=== PATIENT | female | born 1945 | race Caucasian/White ===

== ENCOUNTER → 2017-12-02 | Outpatient (CLI) | payer MEDICARE ==
[~2017-12-02] MED LIST: ALPR0.5T8 PO; CLON-465 PO; ENAL20TA PO; ESCI10TA54 PO; IBUP-2070 PO; LETR2.5T6 PO; LEVO112T7 PO; LEVO500T2 PO; NIFE10 PO; OMEP40CA37 PO; PRAV10TA39 PO
== END | disposition home or self-care (01) ==
LOC: RAH 08:25
PROVIDERS: ATTEND Family Medicine
DX: K44.9 Diaphragmatic hernia without obstruction or gangrene (principal); K21.9 Gastro-esophageal reflux disease without esophagitis
CPT/HCPCS: 74240

== ENCOUNTER → 2018-09-23 | Outpatient (CLI) | payer MEDICARE | END | disposition home or self-care (01) | LOC: RAH 14:12 | PROVIDERS: ATTEND Family Medicine | DX: R05 Cough (principal) | CPT/HCPCS: 71046 ==

== ENCOUNTER → 2018-12-01 | Outpatient (CLI) | payer MEDICARE ==
[~2018-12-01] MED LIST changes: +OMEP40CA13 PO; -OMEP40CA37 PO
== END | disposition home or self-care (01) ==
LOC: RAH 10:52
PROVIDERS: ATTEND Family Medicine
DX: R06.02 Shortness of breath (principal); R05 Cough
CPT/HCPCS: 71046

== ENCOUNTER 2019-02-06 05:52 | Day surgery (SDC) | payer MEDICARE ==
[2019-02-03 14:02] VITALS: BP 136/58
[2019-02-03 14:10] LABS: BASOPHILS % (AUTO) 1.1 % (0.0-5.0); EOSINOPHILS % (AUTO) 2.5 % (0.0-8.0); HEMATOCRIT 38.1 % (36-48); LYMPHOCYTES % (AUTO) 27.2 % (21.0-51.0); MEAN CORPUSCULAR HEMOGLOBIN 27.4 pg (27.0-33.0); MEAN CORPUSCULAR HGB CONC 33.9 g/dL (32.0-36.0); MEAN CORPUSCULAR VOLUME 80.8 fL (79-99); MONOCYTES % (AUTO) 9.8 % (3.0-13.0); NEUTROPHILS % (AUTO) 59.4 % (40.0-77.0); NUCLEATED RED BLOOD CELLS 0.1 % (0.0-0.19); PLATELET COUNT (AUTO) 311 K/uL (130-400); RED BLOOD CELL COUNT(AUTO) 4.72 MIL/uL (4.00-5.50); RED CELL DISTRIBUTION WIDTH 15.3 % (11.0-15.5); WHITE BLOOD COUNT (AUTO) 8.4 K/uL (4.8-10.8)
[2019-02-03 14:17] LABS: APPEARANCE,URINE Clear (CLEAR); BILIRUBIN,URINE Negative (NEGATIVE); COLOR,URINE Yellow (YELLOW); GLUCOSE, URINE (UA) Negative (NEGATIVE); KETONES,URINE Negative (NEGATIVE); LEUKOCYTE ESTERASE ,URINE Negative (NEGATIVE); NITRATE,URINE Negative (NEGATIVE); OCCULT BLOOD,URINE Nonhemolyzed Trace (NEGATIVE); PROTEIN,URINE Negative (NEGATIVE); UROBILINOGEN,URINE 0.2 mg/dL (0.2-1.0)
[2019-02-03 14:24] LABS: CREATININE 1.4 mg/dL (0.5-1.5); POTASSIUM 4.6 mmol/L (3.5-5.1)
[2019-02-03 14:29] LABS: INR 0.92 (0.85-1.15); PARTIAL THROMBOPLASTIN TIME 24.7 SEC (26.3-35.5); PROTHROMBIN TIME 9.7 SEC (9.6-11.6)
[2019-02-03 14:47] LABS: BACTERIA,URINE Rare /HPF (None Seen); WBC,URINE 0-1 /HPF (0-1)
[2019-02-03 14:48] LABS: SQUAMOUS EPITHELIAL CELL,UR 0-2 /HPF (0-2)
--- NOTE | 2019-02-03 15:45 | NUR ---
ABNORMAL LABS CREAT 1.4 REPORTED TO ROCIO REN. NO FURTHER ORDERS GIVEN, MAY PROCEED WITH PLANNED PROCEDURE.
[2019-02-06] VITALS (10 sets, daily range): BP systolic 105–134; BP diastolic 44–62
[~2019-02-06] VITALS: Ht 165.1 cm; Wt 67.7 kg
[~2019-02-06 05:52] MED LIST changes: +BUPR-47 PO; +CHOL100040 PO; -CLON-465 PO; +CLON0.1T PO; +CYAN500T63 PO; -ESCI10TA54 PO; +FERR-82 PO; -IBUP-2070 PO; -LETR2.5T6 PO; -LEVO112T7 PO; +LEVO125T11 PO; -LEVO500T2 PO; +MAGN400T25 PO; -NIFE10 PO; +NIFE30TA98 PO; +OMEG-148 PO; +OMEP20TA25 PO; -OMEP40CA13 PO; +PNV11CAP5 PO; -PRAV10TA39 PO; +SODIUM CHLORIDE 0.9% 500ML 500 ML IV SCH; +ZOLP10TA6 PO
[2019-02-06] MEDS ORDERED: SODIUM CHLORIDE 0.9% 1000ML 1,000 ML IV ONE (06:09)
--- NOTE | 2019-02-06 08:50 | NUR ---
PROCEDURE PT TAKEN TO LOOP DRIER OPERATOR FOR SCHEDULE PROCEDURE
[2019-02-06] MEDS ORDERED: IOHEXOL-350 50ML VIAL IV ONE (08:56)
[2019-02-06] MEDS ORDERED: LIDOCAINE HCL 2% 20ML ONE (08:56)
[2019-02-06] MEDS ORDERED: FENTANYL CITRATE PF 50 MCG/1 ML 2ML VIAL ONE (08:56)
[2019-02-06] MEDS ORDERED: NITROGLYCERIN 5 MG/ML 10 ML VIAL IV ONE (08:56)
[2019-02-06] MEDS ORDERED: MIDAZOLAM HCL 1 MG/ML 2ML VIAL ONE ×2 (08:56→09:38)
[2019-02-06] MEDS ORDERED: IOHEXOL 350 MG/ML 100ML INFUS..BTL IV ONE (08:56)
[2019-02-06] MEDS ORDERED: BIVALIRUDIN 250 MG/VIAL IV ONE (09:22)
[2019-02-06] MEDS ORDERED: SODIUM CHLORIDE 0.9% 1000ML 1,000 ML IV SCH (09:57)
[2019-02-06] MEDS ORDERED: DEXTROSE 50%-WATER 50 ML DISP.SYRIN IV PRN (10:00)
[2019-02-06] MEDS ORDERED: GLUCAGON 1MG KIT 1 MG ML IM PRN (10:00)
[2019-02-06] MEDS ORDERED: METOPROLOL TARTRATE 1 MG/ML 5ML VIAL IV PRN (10:00)
--- NOTE | 2019-02-06 10:15 | NUR ---
POST RECEIVED PT BACK FROM LOCKSMITH HELPER, S/P RIGHT /LHC, MYNX CLOSURE DEVICE, DRESSING TO SITE DRY AND INTACT, NO BLEEDING OR HEMATOMA TO RIGHT GROIN, SEE POST CATH ASSESSMENT, VS STABLE. PT INSTRUCTED TO KEEP BEDREST UNTIL FURTHER ORDERS. PLAN OF CARE DISCUSS WITH PATIENT/ SPOUSE. CALL LIGHT WITHIN REACH
--- NOTE | 2019-02-06 10:40 | NUR ---
MD DR. Billy MO IN ROOM- SPOKE TO PATIENT/FAMILY ON RIGHT /LEFT HEART CATH FINDINGS , RECOMENDATIONS.
--- NOTE | 2019-02-06 14:22 | NUR ---
dc pt dc home via wc, no distress noted. pt denied any pain or discomforts. right groin site asymptomatic, right groin with mynx dressing to site dry and intact, no bleeding or hematoma. pt accompanied by sister in law
== END 2019-02-06 14:22 | disposition home or self-care (01) ==
LOC: DAH 05:52
PROVIDERS: ATTEND Internal Medicine Cardiovascular Disease
DX: I34.0 Nonrheumatic mitral (valve) insufficiency (principal); I34.2 Nonrheumatic mitral (valve) stenosis; I25.10 Atherosclerotic heart disease of native coronary artery without angina pectoris; I10 Essential (primary) hypertension; E78.5 Hyperlipidemia, unspecified; E03.9 Hypothyroidism, unspecified; F41.9 Anxiety disorder, unspecified; Z85.3 Personal history of malignant neoplasm of breast; Z98.890 Other specified postprocedural states; Z79.899 Other long term (current) drug therapy; Z87.891 Personal history of nicotine dependence; Z82.49 Family history of ischemic heart disease and other diseases of the circulatory system
CPT/HCPCS: 36415; 71045; 80048; 81001; 85025; 85610; 85730; 93005; 93460; A4215; A4216; A4221; A4222; A4223 ×3; A4606; A4663; C1760; C1769; C1894 ×3; J1644; J2250 ×2; J3010; J3490 ×2; J7030; Q9965; Q9967 ×2; 99156; 99157; J0583

== ENCOUNTER 2019-03-20 05:57 | Observation (INO) | payer MEDICARE ==
[2019-03-16 11:08] VITALS: BP 106/42
[2019-03-16 11:15] LABS: HEMATOCRIT 36.1 % (36-48); LYMPHOCYTES % (AUTO) 26.7 % (21.0-51.0); MEAN CORPUSCULAR HEMOGLOBIN 26.7 pg (27.0-33.0); MEAN CORPUSCULAR HGB CONC 32.1 g/dL (32.0-36.0); MONOCYTES % (AUTO) 7.9 % (3.0-13.0); NEUTROPHILS % (AUTO) 60.7 % (40.0-77.0); PLATELET COUNT (AUTO) 339 K/uL (130-400); RED BLOOD CELL COUNT(AUTO) 4.35 MIL/uL (4.00-5.50); RED CELL DISTRIBUTION WIDTH 13.8 % (11.0-15.5); WHITE BLOOD COUNT (AUTO) 10.3 K/uL (4.8-10.8)
[2019-03-16 11:17] LABS: APPEARANCE,URINE Clear (CLEAR); BILIRUBIN,URINE Negative (NEGATIVE); COLOR,URINE Yellow (YELLOW); GLUCOSE, URINE (UA) Negative (NEGATIVE); KETONES,URINE Negative (NEGATIVE); LEUKOCYTE ESTERASE ,URINE Trace (NEGATIVE); NITRATE,URINE Negative (NEGATIVE); OCCULT BLOOD,URINE Trace (NEGATIVE); PROTEIN,URINE Negative (NEGATIVE); UROBILINOGEN,URINE 0.2 mg/dL (0.2-1.0)
[2019-03-16 11:27] LABS: CREATININE 1.8 mg/dL (0.5-1.5); POTASSIUM 4.7 mmol/L (3.5-5.1)
[2019-03-16 12:14] LABS: BACTERIA,URINE None Seen /HPF (None Seen); RBC,URINE 0-1 /HPF (0-1); SQUAMOUS EPITHELIAL CELL,UR 0-2 /HPF (0-2); WBC,URINE 0-1 /HPF (0-1)
[2019-03-16 12:34] LABS: INR 0.92 (0.85-1.15); PARTIAL THROMBOPLASTIN TIME 24.9 SEC (26.3-35.5); PROTHROMBIN TIME 9.7 SEC (9.6-11.6)
--- NOTE | 2019-03-17 11:56 | NUR ---
CALLED JADON YOUNG AND ADVISED OF BUN 44, DRILL RIG OPERATOR HELPER 1.8 AND NA OF 133, NEW ORDERS FOR BMP DAY OF PROCEDURE AND HE WOULD CALL BACK IF ANY ORDERS FOR FLUID WILL BE NEEDED.
[2019-03-20] VITALS (25 sets, daily range): BP systolic 95–131; BP diastolic 34–76
[~2019-03-20] VITALS: Ht 165.1 cm; Wt 69.4 kg
[~2019-03-20 05:57] MED LIST changes: +ACET1TAB15 PO; +ALBUTEROL IH; -CHOL100040 PO; -CLON0.1T PO; +CLOP75TA14 PO; -CYAN500T63 PO; +CYCLOBENZAPINE PO; +DIPH1TAB PO; +DULO60CA44 PO; -FERR-82 PO; +FURO20TA4 PO; +GLUC-236 PO; +ISOS30TA6 PO; -MAGN400T25 PO; -OMEP20TA25 PO; -PNV11CAP5 PO; +ZOLP10TA2 PO; -ZOLP10TA6 PO
--- NOTE | 2019-03-20 06:15 | NUR ---
PATIENT ARRIVED TO DAY PATIENT ACCOMPANIED BY SPOUSE AND FRIEND. PATIENT AAOX3, RESPIRATIONS UNLABORED, VITAL SIGNS STABLE, DENIES ANY PAIN AT THIS TIME. PROCEDURE VERIFIED WITH PATIENT, ALL QUESTIONS DISCUSSED. HOSPITAL ROUTINE EXPLAINED, PATIENT AND SPOUSE VERBALIZED UNDERSTANDING.
[2019-03-20 06:35] LABS: CREATININE 1.7 mg/dL (0.5-1.5); POTASSIUM 4.4 mmol/L (3.5-5.1)
[2019-03-20] MEDS ORDERED: SODIUM CHLORIDE 0.9% 1000ML 1,000 ML IV ONE (06:59)
[2019-03-20] MEDS ORDERED: BIVALIRUDIN 250 MG/VIAL IV ONE (07:14)
[2019-03-20] MEDS ORDERED: NITROGLYCERIN 1 MG/VIAL VIAL IV ONE (07:15)
[2019-03-20] MEDS ORDERED: MIDAZOLAM HCL 1 MG/ML 2ML VIAL ONE (07:15)
[2019-03-20] MEDS ORDERED: LIDOCAINE HCL 2% 20ML ONE (07:15)
[2019-03-20] MEDS ORDERED: IOHEXOL 350 MG/ML 100ML INFUS..BTL IV ONE (07:16)
[2019-03-20] MEDS ORDERED: IOHEXOL-350 50ML VIAL IV ONE (07:16)
--- NOTE | 2019-03-20 07:20 | NUR ---
PATIENT TRANSFERRED TO DELIVERY MANAGER VIA BED BY ZHANNA JUARES. SPOUSE INSTRUCTED TO STAY IN ROOM IN ORDER TO SPEAK WITH DR MO AFTER PROCEDURE IS COMPLETE.
[2019-03-20] MEDS ORDERED: FENTANYL CITRATE PF 50 MCG/1 ML 2ML VIAL ONE (07:28)
[2019-03-20] MEDS ORDERED: GLUCAGON 1MG KIT 1 MG ML IM PRN (09:00)
[2019-03-20] MEDS ORDERED: HYDRALAZINE HCL 20 MG/ML VIAL IV PRN (09:00)
[2019-03-20] MEDS: ASPIRIN 81MG TAB.CHEW PO SCH (09:00)
[2019-03-20] MEDS ORDERED: DEXTROSE 50%-WATER 50 ML DISP.SYRIN IV PRN (09:00)
[2019-03-20] MEDS ORDERED: NITROGLYCERIN 0.4 MG SL TAB SL PRN (09:00)
[2019-03-20] MEDS: CLOPIDOGREL BISULFATE 75 MG TAB PO SCH (09:00)
[2019-03-20] MEDS: SODIUM CHLORIDE 0.9% 1000ML 600 ML IV SCH ×2 (09:45→14:32)
[2019-03-20 10:40] LABS: CHOLESTEROL 219 mg/dL (<200); LDL DIRECT 126 mg/dL (0-99); TRIGLYCERIDES 320 mg/dL (30-200)
[2019-03-20] MEDS ORDERED: ATROPINE SULFATE 0.1 MG/ML 10 ML SYG IVP ONE (10:46)
[2019-03-20 10:59] LABS: HDL CHOLESTEROL 39 mg/dL (35-85)
--- NOTE | 2019-03-20 14:00 | NUR ---
REPORT/HAND OFF COMMUNICATION REPORT CALLED TO ZHANNA RAI USING SBAR. ALL QUESTIONS/CONCERNS ADDRESSED.
--- NOTE | 2019-03-20 14:15 | NUR ---
PATIENT TRANSFERRED TO ROOM 202 VIA BED. NURSECECELIA AT BEDSIDE. DRESSING TO RIGHT GROIN DRY/INTACT. AREA SOFT/NONTENDER. NO HEMATOMA, NO DRAINAGE PRESENT.
--- NOTE | 2019-03-20 14:15 | NUR ---
RECEIVED TRANSFER TO ROOM 202 VIA BED ACCOMPANIED BY TUAN. RN. PT. AAOX3, RESP.'S EVEN AND UNLABORED. PLEASANT, TALKATIVE. DENIES ANY SOB, DENIES ANY PAIN. CALL LIGHT WITHIN REACH, VERBALIZED ABILITY TO USE.
[2019-03-21 04:08] VITALS: BP 129/51
[2019-03-21 04:19] LABS: HEMATOCRIT 34.4 % (36-48); MEAN CORPUSCULAR HEMOGLOBIN 26.9 pg (27.0-33.0); MEAN CORPUSCULAR HGB CONC 32.3 g/dL (32.0-36.0); MEAN CORPUSCULAR VOLUME 83.5 fL (79-99); PLATELET COUNT (AUTO) 289 K/uL (130-400); RED BLOOD CELL COUNT(AUTO) 4.12 MIL/uL (4.00-5.50); RED CELL DISTRIBUTION WIDTH 13.8 % (11.0-15.5); WHITE BLOOD COUNT (AUTO) 8.5 K/uL (4.8-10.8)
[2019-03-21 04:51] LABS: CREATININE 1.6 mg/dL (0.5-1.5)
--- NOTE | 2019-03-21 07:29 | NUR ---
DR. Addie MO IN ROOM SPEAKING WITH PT. RE:PLAN OF CARE. QUESTIONS ANSWERED BY DR. MO.
[2019-03-21 07:35] VITALS: BP 139/69
[2019-03-21] MEDS: ASPIRIN 81MG TAB.CHEW PO SCH (08:55)
[2019-03-21] MEDS: CLOPIDOGREL BISULFATE 75 MG TAB PO SCH (08:55)
--- NOTE | 2019-03-21 11:10 | NUR ---
HL REMOVED, CATHETER INTACT. DISCHARGE INSTRUCTIONS PROVIDED TO PT. AND FAMILY MEMBERS AT BEDSIDE, VERBALIZED MUTUAL UNDERSTANDING. PT. INFORMED OF RIGHT GROIN RESTRICTIONS/PRECAUTIONS, VERBALIZED UNDERSTANDING.
== END 2019-03-21 11:34 | disposition home or self-care (01) ==
LOC: DAH 05:57 → DAHIP 05:58 → DAH 05:58 → 2AH 14:27
PROVIDERS: ADMIT Internal Medicine Cardiovascular Disease; ATTEND Internal Medicine Cardiovascular Disease
DX: I34.0 Nonrheumatic mitral (valve) insufficiency (principal); I25.119 Atherosclerotic heart disease of native coronary artery with unspecified angina pectoris; I13.0 Hypertensive heart and chronic kidney disease with heart failure and stage 1 through stage 4 chronic kidney disease, or unspecified chronic kidney disease; I50.33 Acute on chronic diastolic (congestive) heart failure; N18.4 Chronic kidney disease, stage 4 (severe); I27.20 Pulmonary hypertension, unspecified; E78.5 Hyperlipidemia, unspecified; K25.9 Gastric ulcer, unspecified as acute or chronic, without hemorrhage or perforation; F41.9 Anxiety disorder, unspecified; Z79.02 Long term (current) use of antithrombotics/antiplatelets; Z79.82 Long term (current) use of aspirin; Z79.899 Other long term (current) drug therapy
CPT/HCPCS: 36415 ×3; 80048 ×3; 80061; 81001; 83880; 85025; 85027; 85610; 85730; 93454; A4215; A4216; A4221; A4222; A4223 ×2; A4606; A4657; A4663; A6402; C1725; C1769; C1874 ×2; C1887; C1894 ×3; C9600; G0378 ×27; J0583; J1644; J2250; J3010; J3490 ×2; J7030 ×2; Q9965 ×2; Q9967; 99156; 99157; J0461

== ENCOUNTER 2019-04-28 12:00 | Inpatient (IN) | payer MEDICARE ==
[~2019-04-28] VITALS: Ht 165.1 cm; Wt 72.8 kg
[~2019-04-28 12:00] MED LIST changes: -DULO60CA44 PO; -SODIUM CHLORIDE 0.9% 500ML 500 ML IV SCH
[2019-04-28 12:34] LABS: BASOPHILS % (AUTO) 0.6 % (0.0-5.0); EOSINOPHILS % (AUTO) 3.9 % (0.0-8.0); HEMATOCRIT 34.9 % (36-48); MEAN CORPUSCULAR HEMOGLOBIN 27.5 pg (27.0-33.0); MEAN CORPUSCULAR HGB CONC 32.4 g/dL (32.0-36.0); MEAN CORPUSCULAR VOLUME 84.9 fL (79-99); MONOCYTES % (AUTO) 8.4 % (3.0-13.0); NEUTROPHILS % (AUTO) 69.6 % (40.0-77.0); PLATELET COUNT (AUTO) 344 K/uL (130-400); RED BLOOD CELL COUNT(AUTO) 4.11 MIL/uL (4.00-5.50); RED CELL DISTRIBUTION WIDTH 13.9 % (11.0-15.5); WHITE BLOOD COUNT (AUTO) 12.7 K/uL (4.8-10.8)
[2019-04-28 12:42] LABS: HEMOGLOBIN A1C 5.3 % (4.0-6.0)
[2019-04-28 12:44] LABS: INR 0.93 (0.85-1.15); PARTIAL THROMBOPLASTIN TIME 25.8 SEC (26.3-35.5); PROTHROMBIN TIME 9.8 SEC (9.6-11.6)
[2019-04-28 12:45] LABS: ALBUMIN 3.8 g/dL (3.5-5.0); BILIRUBIN,TOTAL 0.3 mg/dL (0.2-1.0); CREATININE 2.1 mg/dL (0.5-1.5); POTASSIUM 4.5 mmol/L (3.5-5.1); TOTAL PROTEIN, SERUM 7.9 g/dL (6.0-8.3)
[2019-04-28 13:25] VITALS: BP 102/47
[2019-04-28] MEDS ORDERED: PANT40TA25 PO (13:56)
[2019-04-28] MEDS ORDERED: GABA600T10 PO (13:56)
[2019-04-28] MEDS ORDERED: DULO30CA52 PO (13:56)
[2019-04-28] MEDS ORDERED: ASPI-555 PO (13:56)
--- NOTE | 2019-04-28 17:00 | NUR ---
LABS ABNORMAL WBC, , H&H, SODIUM, CREA, REPORTED TO DR. CRUZ. MESSAGE LEFT WITH SYLWIA TREVIZO RN. PER DR. CRUZ NO FURTHER ORDERS GIVEN, OK TO PROCEED WITH PLANNED SURGERY
[2019-05-01] VITALS (59 sets, daily range): BP systolic 96–188; BP diastolic 31–106
[2019-05-01] MEDS ORDERED: SODIUM CHLORIDE 0.9% 1000ML 1,000 ML IV ONE (09:48)
[2019-05-01] MEDS: CEFUROXIME SODIUM 1.5 GM VIAL ONE ×2 (10:16→11:30)
[2019-05-01] MEDS ORDERED: NOREPINEPHRINE BITARTRATE 8 MG in DEXTROSE 5%-WATER 250 ML IV PRN ×2 (10:30→20:15)
[2019-05-01] MEDS ORDERED: EPINEPHRINE 10 MG in SODIUM CHLORIDE 0.9% 240 ML IV PRN ×2 (10:30→20:15)
[2019-05-01] MEDS ORDERED: AMINOCAPROIC ACID 15,000 MG in SODIUM CHLORIDE 0.9% 500ML 420 ML IV PRN (10:30)
[2019-05-01] MEDS ORDERED: CEFAZOLIN SODIUM 1 GM VIAL ONE (10:35)
[2019-05-01] MEDS ORDERED: OCTYL 2-CYANOACRYLATE 1 EACH TP ONE (10:36)
[2019-05-01] MEDS ORDERED: NOREPINEPHRINE BITARTRATE 1 MG/1 ML ML IV ONE (10:58)
[2019-05-01] MEDS ORDERED: PROTAMINE SULFATE 10 MG/ML 25ML VIAL IV ONE (10:58)
[2019-05-01] MEDS ORDERED: ESMOLOL HCL 10 MG/ML 10 ML VIAL ONE (10:58)
[2019-05-01] MEDS ORDERED: LIDOCAINE PF 2% 5ML ABBOJECT ONE (10:58)
[2019-05-01] MEDS ORDERED: PROPOFOL 10 MG/ML 20ML VIAL IV ONE (10:58)
[2019-05-01] MEDS ORDERED: HEPARIN SODIUM 1000UNIT/ML 10ML VIAL ONE (10:58)
[2019-05-01] MEDS ORDERED: AMINOCAPROIC ACID 250 MG/ML 20 ML VIAL IV ONE ×2 (10:58→14:29)
[2019-05-01] MEDS ORDERED: EPINEPHRINE 1 MG/ML AMPULE ONE (10:58)
[2019-05-01] MEDS ORDERED: ROCURONIUM 10MG/1ML SYR 10 MG/ML ML ONE (10:59)
[2019-05-01] MEDS ORDERED: MIDAZOLAM HCL 1 MG/ML 2ML VIAL ONE (10:59)
[2019-05-01] MEDS ORDERED: KETAMINE 50MG/ML SYRINGE 50 MG/ML DISP.SYRIN IV ONE ×2 (11:00→13:39)
[2019-05-01] MEDS ORDERED: SUFENTANIL CITRATE 50 MCG/ML AMP ONE (11:06)
[2019-05-01] MEDS ORDERED: SODIUM BICARB 50MEQ 50ML VIAL ONE (11:33)
[2019-05-01 11:47] LABS: ABG BASE EXCESS -0.6 mmol/L (-2.0-3.0); ABG HCO3 22.7 mmol/L (21.0-28.0); ABG OXYGEN SATURATION 98.9 % (95.0-99.0); ABG PCO2 33 mmHg (32-45)
[2019-05-01] MEDS ORDERED: ROCURONIUM BROMIDE 10MG/1ML 5ML VL ONE (11:58)
[2019-05-01] MEDS ORDERED: DELNIDO FORMULA 1 BAG IV ONE (12:04)
[2019-05-01] MEDS ORDERED: ALBUTEROL IH PRN (12:15)
[2019-05-01] MEDS ORDERED: ROPIVACAINE 0.5% 5MG/ML 30ML IJ ONE (12:17)
[2019-05-01] MEDS ORDERED: SODIUM CHLORIDE 0.9% 500ML 500 ML IV SCH (12:35)
[2019-05-01 12:43] LABS: ABG BASE EXCESS -4.5 mmol/L (-2.0-3.0); ABG HCO3 19.9 mmol/L (21.0-28.0); ABG OXYGEN SATURATION 98.4 % (95.0-99.0); ABG PCO2 33 mmHg (32-45)
[2019-05-01] MEDS ORDERED: SODIUM CHLORIDE 0.9% 10 ML VIAL IVP PRN (12:45)
[2019-05-01] MEDS ORDERED: PROPOFOL 1000 MG/100 ML 100 ML IV PRN (12:45)
[2019-05-01] MEDS ORDERED: GLUCAGON 1MG KIT 1 MG ML IM PRN (12:45)
[2019-05-01] MEDS ORDERED: MORPHINE SULFATE 2 MG/ML 1ML SYG IV PRN (12:45)
[2019-05-01] MEDS ORDERED: MORPHINE SULFATE 4 MG/1ML SYG IV PRN (12:45)
[2019-05-01] MEDS ORDERED: POTASSIUM PHOS 15 mMOL+NS250ML 250 ML IV PRN (12:45)
[2019-05-01] MEDS ORDERED: ACETAMINOPHEN 650 MG SUPPOSITORY RC PRN (12:45)
[2019-05-01] MEDS ORDERED: DEXTROSE 50%-WATER 50 ML DISP.SYRIN IV PRN (12:45)
[2019-05-01] MEDS ORDERED: ONDANSETRON HCL 4 MG/2 ML VIAL IV PRN (12:45)
[2019-05-01] MEDS ORDERED: NOREPINEPHRINE 4MG/NS 250ML 250 ML IV PRN (12:45)
[2019-05-01] MEDS ORDERED: SODIUM BICARB 50MEQ 50ML VIAL IV PRN (12:45)
[2019-05-01] MEDS ORDERED: NITROGLYCERIN 50 MG/D5% WATER 250 BOT IV SCH (12:45)
[2019-05-01] MEDS ORDERED: SODIUM CHLORIDE 0.9% 1000ML 1,000 ML IV SCH (12:45)
[2019-05-01] MEDS ORDERED: MAGNESIUM 2GM PREMIX 50ML 50 ML IV PRN (12:45)
[2019-05-01] MEDS ORDERED: ALBUMIN (HUMAN) 5% 250 ML IV PRN (12:45)
[2019-05-01] MEDS ORDERED: ACETAMINOPHEN 325 MG TAB PO PRN ×2 (12:45)
[2019-05-01] MEDS ORDERED: SODIUM CHLORIDE 0.9% 250 ML IV PRN (12:45)
[2019-05-01] MEDS ORDERED: AMINOCAPROIC ACID 15,000 MG in SODIUM CHLORIDE 0.9% 250 ML IV SCH (12:45)
[2019-05-01] MEDS ORDERED: EPINEPHRINE 10 MG in DEXTROSE 5%-WATER 250 ML IV PRN (12:45)
[2019-05-01 13:05] LABS: ABG BASE EXCESS -4.2 mmol/L (-2.0-3.0); ABG HCO3 19.7 mmol/L (21.0-28.0); ABG OXYGEN SATURATION 98.4 % (95.0-99.0); ABG PCO2 31 mmHg (32-45)
[2019-05-01] MEDS ORDERED: AMIODARONE HCL 50 MG/ML 3 ML VIAL ONE (13:30)
[2019-05-01] MEDS ORDERED: MILRINONE-D5W 20 MG/100 ML 100 ML IV ONE (13:32)
[2019-05-01 13:40] LABS: ABG BASE EXCESS -6.6 mmol/L (-2.0-3.0); ABG HCO3 17.8 mmol/L (21.0-28.0); ABG OXYGEN SATURATION 98.5 % (95.0-99.0); ABG PCO2 31 mmHg (32-45)
[2019-05-01] MEDS ORDERED: GLYCOPYRROLATE 1 MG/5 ML SYRINGE ONE (13:48)
[2019-05-01 14:07] LABS: ABG BASE EXCESS -9.2 mmol/L (-2.0-3.0); ABG OXYGEN SATURATION 96.1 % (95.0-99.0); ABG PCO2 38 mmHg (32-45)
[2019-05-01] MEDS ORDERED: PROTAMINE SULFATE 10 MG/ML 5 ML VIAL ONE (14:11)
[2019-05-01] MEDS ORDERED: HEPARIN SODIUM 1000UNIT/ML 10ML VIAL IV ONE (14:29)
[2019-05-01] MEDS ORDERED: ALBUMIN (HUMAN) 25% 50 ML IV ONE (14:29)
[2019-05-01] MEDS ORDERED: SODIUM BICARB 8.4% 50ML SYRINGE IVP ONE (14:29)
[2019-05-01] MEDS ORDERED: PHENYLEPHRINE HCL 10 MG/ML 1ML VIAL IV ONE (14:29)
[2019-05-01] MEDS ORDERED: MAGNESIUM SULFATE 1 GM/2 ML VIAL IM ONE (14:29)
[2019-05-01] MEDS ORDERED: MANNITOL 25% 50ML VIAL IV ONE (14:29)
[2019-05-01] MEDS ORDERED: CALCIUM CHLORIDE 100 MG/ML 10 ML SYG IVP ONE (14:29)
--- NOTE | 2019-05-01 14:33 | NUR ---
POST OP Received pt immediately post op. Orally intubated/sedated. Sedation not infusing. Not yet responsive to verbal or tactile stimulation. SR on tele - fair apical heart tones. VS/hemodynamics as recorded. Vent settings as recorded. Skin is warm, dry. Abd soft - absent bowel sounds. No OGT in place. F/C patent - clear yellow urine. Right IJ CVP line in use. Left radial arterial line patent with acceptable waveform, brisk blood return obtained. PIV to RH patent. Surgical drsg to right chest wall with small amount of bloody drainage - marked. No evidence of crepitus/air leak. Single 19fr right lateral CT in place with sanguineous drainage. CT to 20cm suction. Epicardial wires taped securely to chest wall. Ambu pain infusion catheter in place - pain ball connected - infusing at 10ml/hr as ordered. Right groin drsg clean and dry. No evidence of bleeding/oozing or hematoma noted to site. Received pt on IV levophed gtt @10mcg/min, epinephrine gtt @0.07mcg/kg/min, amicar @50ml/hr, milrinone @0.25mcg/kg/min. Assessment completed/recorded.
[2019-05-01 15:13] LABS: ABG BASE EXCESS 0.1 mmol/L (-2.0-3.0); ABG HCO3 25.7 mmol/L (21.0-28.0); ABG OXYGEN SATURATION 91.2 % (95.0-99.0); ABG PCO2 46 mmHg (32-45)
--- NOTE | 2019-05-01 15:16 | NUR ---
PT CARE IV levophed gtt now at 6mcg/min - will observe pt tolerance. No acute changes in pt assessment. Not yet responsive to stimulation.
[2019-05-01] MEDS: INSULIN REGULAR, HUMAN 3ML 100 UNIT in SODIUM CHLORIDE 0.9% 99 ML IV SCH ×2 (15:31)
[2019-05-01] MEDS: Q-PUMP 1 EACH MISC SCH (15:32)
[2019-05-01 15:59] LABS: HEMATOCRIT 27.9 % (36-48); MEAN CORPUSCULAR HEMOGLOBIN 27.4 pg (27.0-33.0); MEAN CORPUSCULAR HGB CONC 33.3 g/dL (32.0-36.0); MEAN CORPUSCULAR VOLUME 82.3 fL (79-99); PLATELET COUNT (AUTO) 293 K/uL (130-400); RED BLOOD CELL COUNT(AUTO) 3.39 MIL/uL (4.00-5.50); RED CELL DISTRIBUTION WIDTH 14.2 % (11.0-15.5)
[2019-05-01] MEDS: POTASSIUM CHLORIDE 20MEQ/100ML 100 ML IV PRN ×2 (15:59→19:21)
[2019-05-01] MEDS ORDERED: ROPIVACAINE 0.2% 2MG/ML 100ML VIAL IJ ONE (16:01)
[2019-05-01 16:05] LABS: ABG BASE EXCESS 0.5 mmol/L (-2.0-3.0); ABG HCO3 25.4 mmol/L (21.0-28.0); ABG OXYGEN SATURATION 91.7 % (95.0-99.0); ABG PCO2 42 mmHg (32-45)
--- NOTE | 2019-05-01 16:10 | NUR ---
FAMILY UPDATE Pt's family in to see pt - updated. Questions addressed. Discussed routine post op plan of care. [facility] phone number provided to pt's spouse. Made aware of [facility] visitation policy. Pt beginning to show signs of waking. Attempts made to reassure. No eye opening observed. IV levophed gtt now at 2mcg/min. Will observe pt tolerance. Refer to VS flow sheet.
[2019-05-01 16:13] LABS: CREATININE 1.7 mg/dL (0.5-1.5); INR 1.07 (0.85-1.15); PARTIAL THROMBOPLASTIN TIME 23.3 SEC (26.3-35.5); PHOSPHORUS 4.7 mg/dL (2.5-4.9); POTASSIUM 3.9 mmol/L (3.5-5.1); PROTHROMBIN TIME 11.2 SEC (9.6-11.6)
[2019-05-01 16:43] LABS: BAND NEUTROPHILS % (MANUAL) 2 % (0-2); EOSINOPHILS % (MANUAL) 1 % (1-6); LYMPHOCYTES % (MANUAL) 9 % (22-44); MAN.DIFF COMMENT-IMPRESSION MANUAL DIFFERENTIAL; MONOCYTES % (MANUAL) 5 % (2-9); SEGMENTED NEUTROPHILS % 83 % (40-70)
[2019-05-01 16:45] LABS: PLATELET MORPHOLOGY COMMENT ADEQUATE
--- NOTE | 2019-05-01 17:02 | NUR ---
STATUS No eye opening observed but pt now beginning to attempt to lift upper extremities - shoulder "shrug" noted. Pt attempting to move head side to side. Attempts made to reassure pt. Will continue to observe. IV levophed gtt now @0.5mcg/min - remaining gtts unchanged.
[2019-05-01] MEDS: CEFAZOLIN SODIUM 1 GM VIAL IV SCH (17:58)
--- NOTE | 2019-05-01 18:00 | NUR ---
STATUS Pt attempting to open eyes to commands - not yet successful. Attempts made to reassure. IV levophed now off. Will observe pt tolerance.
--- NOTE | 2019-05-01 18:30 | NUR ---
SHIFT REPORT Care of pt endorsed to 7P RN. Pt continues to show signs of waking but is not yet arousable fully to verbal stimulation. Is in no acute distress.
--- NOTE | 2019-05-01 19:00 | NUR ---
Received Pt intubated with milrinone, levo, insulin and epi drip running via right IJ cordis. Pt lethargic but arousable to voice, able to squeeze hands bilaterally. Alvarado secured and draining clear yellow urine, left radial art line, right lateral chest tube to wall suction draining sanguineous fluid. On Ropivacaine continous drip to right chest site running 10cc/hr. Will continue to monitor and manage medications.
[2019-05-01 19:12] LABS: ABG BASE EXCESS -2.5 mmol/L (-2.0-3.0); ABG HCO3 21.5 mmol/L (21.0-28.0); ABG OXYGEN SATURATION 95.5 % (95.0-99.0); ABG PCO2 34 mmHg (32-45)
[2019-05-01] MEDS ORDERED: NOREPINEPHRINE 4MG/NS 250ML 250 ML IV SCH (20:00)
[2019-05-01] MEDS ORDERED: EPINEPHRINE 2 MG in SODIUM CHLORIDE 0.9% 250 ML IV SCH (20:00)
[2019-05-01] MEDS: PHARMACY COMMUNICATION MISC SCH (20:30)
[2019-05-01 20:34] LABS: ABG BASE EXCESS 1.3 mmol/L (-2.0-3.0); ABG HCO3 24.7 mmol/L (21.0-28.0); ABG OXYGEN SATURATION 93.1 % (95.0-99.0); ABG PCO2 35 mmHg (32-45)
[2019-05-01] MEDS: ATORVASTATIN CALCIUM 20 MG TABLET PO SCH (21:00)
[2019-05-01 21:17] LABS: ABG BASE EXCESS 0.5 mmol/L (-2.0-3.0); ABG HCO3 23.6 mmol/L (21.0-28.0); ABG OXYGEN SATURATION 93.6 % (95.0-99.0); ABG PCO2 34 mmHg (32-45)
--- NOTE | 2019-05-01 21:20 | NUR ---
Pt extubated at 2119 with no complications, able to follow commands. ABG within normal limits, alert and coherent.
[2019-05-01] MEDS: TRAMADOL HCL 50 MG TABLET PO PRN (22:29)
[2019-05-01 22:55] LABS: ABG BASE EXCESS 4.6 mmol/L (-2.0-3.0); ABG HCO3 28.8 mmol/L (21.0-28.0); ABG PCO2 41 mmHg (32-45)
[2019-05-02] VITALS (91 sets, daily range): BP systolic 102–255; BP diastolic 33–87
[2019-05-02] MEDS: CEFAZOLIN SODIUM 1 GM VIAL IV SCH ×2 (02:11→09:16)
[2019-05-02 04:08] LABS: HEMATOCRIT 22.4 % (36-48); MEAN CORPUSCULAR HEMOGLOBIN 26.8 pg (27.0-33.0); MEAN CORPUSCULAR VOLUME 81.2 fL (79-99); PLATELET COUNT (AUTO) 208 K/uL (130-400); RED BLOOD CELL COUNT(AUTO) 2.76 MIL/uL (4.00-5.50); WHITE BLOOD COUNT (AUTO) 21.1 K/uL (4.8-10.8)
[2019-05-02 04:13] LABS: ABG BASE EXCESS 5.3 mmol/L (-2.0-3.0); ABG HCO3 29.8 mmol/L (21.0-28.0); ABG PCO2 43 mmHg (32-45)
[2019-05-02] MEDS: PHARMACY COMMUNICATION MISC SCH ×3 (04:30→20:30)
[2019-05-02] MEDS: TRAMADOL HCL 50 MG TABLET PO PRN ×2 (04:30→10:34)
[2019-05-02 04:36] LABS: MAGNESIUM 2.1 mg/dL (1.80-2.40); PHOSPHORUS 3.9 mg/dL (2.5-4.9); POTASSIUM 4.4 mmol/L (3.5-5.1)
[2019-05-02 04:53] LABS: INR 1.01 (0.85-1.15); PARTIAL THROMBOPLASTIN TIME 23.6 SEC (26.3-35.5); PROTHROMBIN TIME 10.6 SEC (9.6-11.6)
[2019-05-02] MEDS: CALCIUM GLUCONATE 1 GM in SODIUM CHLORIDE 0.9% 50 ML IV PRN ×2 (07:16→10:42)
--- NOTE | 2019-05-02 08:40 | NUR ---
DR CRUZ UPDATED VIA PHONE REGARDING AM LABS, NEW ORDERS GIVEN TO TRANSFUSE 1 UNIT OF PRBC'S
[2019-05-02] MEDS: INSULIN REGULAR, HUMAN 3ML 100 UNIT in SODIUM CHLORIDE 0.9% 99 ML IV SCH ×2 (09:05)
[2019-05-02] MEDS: LEVOTHYROXINE 125 MCG TABLET PO SCH (09:06)
[2019-05-02] MEDS: ASPIRIN 81 MG EC TAB PO SCH (09:06)
[2019-05-02] MEDS: FUROSEMIDE 10 MG/ML 2ML VIAL IV SCH ×2 (09:06→22:10)
[2019-05-02] MEDS: FAMOTIDINE/PF 20 MG/2 ML VIAL IV SCH (09:06)
[2019-05-02] MEDS: DULOXETINE HCL 30 MG CAP PO SCH (09:06)
[2019-05-02] MEDS: Q-PUMP 1 EACH MISC SCH (13:00)
--- NOTE | 2019-05-02 13:37 | NUR ---
INITIAL Patient lives with spouse, Rodriguez Venegas, . She has no home services or DME. Patient is able to complete ADL's independently and drove before surgery. PCP is Dr. Giorgio Linder. Pharmacy is [facility] in [place]. DCP is home. Addendum: 05/02/19 at 1339 by DAVIDE DISLA SS Amended: Links added.
--- NOTE | 2019-05-02 17:40 | NUR ---
DR CRUZ AT BEDSIDE, NO NEW ORDERS GIVEN
[2019-05-02] MEDS: BUPROPION HCL 150 MG PO SCH (21:00)
[2019-05-02] MEDS: ATORVASTATIN CALCIUM 20 MG TABLET PO SCH (22:10)
[2019-05-03] VITALS (24 sets, daily range): BP systolic 106–170; BP diastolic 32–65
[2019-05-03] MEDS: TRAMADOL HCL 50 MG TABLET PO PRN (03:37)
[2019-05-03 04:15] LABS: HEMATOCRIT 24.5 % (36-48); MEAN CORPUSCULAR HGB CONC 33.1 g/dL (32.0-36.0); MEAN CORPUSCULAR VOLUME 81.7 fL (79-99); PLATELET COUNT (AUTO) 166 K/uL (130-400); RED CELL DISTRIBUTION WIDTH 14.5 % (11.0-15.5); WHITE BLOOD COUNT (AUTO) 23.1 K/uL (4.8-10.8)
[2019-05-03 04:23] LABS: POTASSIUM 3.5 mmol/L (3.5-5.1)
[2019-05-03] MEDS: PHARMACY COMMUNICATION MISC SCH ×3 (04:30→20:30)
[2019-05-03] MEDS: POTASSIUM CHLORIDE 20MEQ/100ML 100 ML IV PRN (04:41)
[2019-05-03] MEDS ORDERED: METOPROLOL TARTRATE 25 MG TAB PO SCH (09:00)
[2019-05-03] MEDS: LEVOTHYROXINE 125 MCG TABLET PO SCH (10:57)
[2019-05-03] MEDS: FAMOTIDINE/PF 20 MG/2 ML VIAL IV SCH (10:57)
[2019-05-03] MEDS: FUROSEMIDE 20 MG TABLET PO SCH ×2 (10:58→16:45)
[2019-05-03] MEDS: ASPIRIN 81 MG EC TAB PO SCH (10:58)
[2019-05-03] MEDS: DULOXETINE HCL 30 MG CAP PO SCH (10:59)
[2019-05-03] MEDS: Q-PUMP 1 EACH MISC SCH (13:00)
[2019-05-03] MEDS: METOPROLOL TARTRATE 25 MG TAB PO SCH (20:43)
[2019-05-03] MEDS: ATORVASTATIN CALCIUM 20 MG TABLET PO SCH (20:43)
[2019-05-03] MEDS: BUPROPION HCL 150 MG PO SCH (20:45)
[2019-05-04] VITALS (7 sets, daily range): BP systolic 106–140; BP diastolic 47–76
--- NOTE | 2019-05-04 00:08 | NUR ---
PATIENT TRANSFERRED TO ROOM 201,REPORT GIVEN TO ZHANNA FELTON.
[2019-05-04 04:21] LABS: HEMATOCRIT 21.8 % (36-48); MEAN CORPUSCULAR HEMOGLOBIN 27.6 pg (27.0-33.0); MEAN CORPUSCULAR HGB CONC 32.6 g/dL (32.0-36.0); MEAN CORPUSCULAR VOLUME 84.8 fL (79-99); PLATELET COUNT (AUTO) 158 K/uL (130-400); RED BLOOD CELL COUNT(AUTO) 2.57 MIL/uL (4.00-5.50); RED CELL DISTRIBUTION WIDTH 14.5 % (11.0-15.5); WHITE BLOOD COUNT (AUTO) 21.5 K/uL (4.8-10.8)
[2019-05-04 04:27] LABS: CREATININE 1.3 mg/dL (0.5-1.5); POTASSIUM 3.3 mmol/L (3.5-5.1)
[2019-05-04] MEDS: PHARMACY COMMUNICATION MISC SCH (04:30)
[2019-05-04] MEDS: ASPIRIN 81 MG EC TAB PO SCH (09:00)
[2019-05-04] MEDS: METOPROLOL TARTRATE 25 MG TAB PO SCH ×2 (12:14→23:20)
[2019-05-04] MEDS: FUROSEMIDE 20 MG TABLET PO SCH ×3 (12:14→18:39)
[2019-05-04] MEDS: DULOXETINE HCL 30 MG CAP PO SCH (12:14)
[2019-05-04] MEDS: LEVOTHYROXINE 125 MCG TABLET PO SCH (12:15)
[2019-05-04] MEDS: CLOPIDOGREL BISULFATE 75 MG TAB PO SCH (12:15)
[2019-05-04] MEDS: ENOXAPARIN SODIUM 30 MG/0.3 ML SQ SCH (12:16)
--- NOTE | 2019-05-04 15:32 | NUR ---
DC PLAN VISITED WITH PATIENT. ORDER FOR HOME HEALTH. SAID THEY DISCUSSED IT AND NOW WANT SNF. 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 NO ONE TO HELP PATIENT AT HOME WHILE SPOUSE AT WORK. GAVE SNF INFO INCLUDING CMS GUIDELINES. SAID SHE IS TALKING TO SPOUSE TO SEE WHICH PLACE TO GO WITH. TOLD NURSE AND SENDING MESSAGE TO DR. CRUZ NURSE THAT PATIENT CHANGED PLAN FROM HOME HEALTH TO SNF. PENDING ORDER FROM PRIMARY. Addendum: 05/04/19 at 1538 by RADHA TAVAREZ RN Amended: Links added.
--- NOTE | 2019-05-04 17:55 | NUR ---
DC PLAN VISITED WITH PATIENT. [facility] FOR [facility] CHOICE AND [facility] CHOICE. GOT ORDER FOR SNF FROM PRIMARY. INFO FAXED INCLUDING [facility]. LET REP KNOW.
[2019-05-04] MEDS ORDERED: LIDOCAINE HCL-MPF 1% 2ML VIAL IV PRN (18:45)
[2019-05-04] MEDS ORDERED: POTASSIUM CHLORIDE 20MEQ/100ML 100 ML IV PRN (18:45)
[2019-05-04] MEDS ORDERED: POTASSIUM CHLORIDE 10% ELIXIR 20 MEQ/15 ML UDCUP PO PRN (18:45)
[2019-05-04] MEDS: POTASSIUM CHLORIDE 20 MEQ ERTAB PO PRN ×2 (19:35→22:34)
[2019-05-04] MEDS: ATORVASTATIN CALCIUM 20 MG TABLET PO SCH (20:41)
[2019-05-04] MEDS: BUPROPION HCL 150 MG PO SCH (21:00)
[2019-05-05 03:39] VITALS: BP 153/60
[2019-05-05 03:54] LABS: HEMATOCRIT 25.4 % (36-48); MEAN CORPUSCULAR HEMOGLOBIN 27.9 pg (27.0-33.0); MEAN CORPUSCULAR HGB CONC 33.5 g/dL (32.0-36.0); MEAN CORPUSCULAR VOLUME 83.3 fL (79-99); PLATELET COUNT (AUTO) 185 K/uL (130-400); RED BLOOD CELL COUNT(AUTO) 3.05 MIL/uL (4.00-5.50); RED CELL DISTRIBUTION WIDTH 13.6 % (11.0-15.5)
[2019-05-05 04:02] LABS: CREATININE 1.2 mg/dL (0.5-1.5); POTASSIUM 3.4 mmol/L (3.5-5.1)
[2019-05-05] MEDS: LEVOTHYROXINE 125 MCG TABLET PO SCH (05:34)
[2019-05-05 07:00] VITALS: BP 156/59
[2019-05-05] MEDS ORDERED: METOPROLOL TARTRATE 25 MG TAB PO SCH (09:00)
--- NOTE | 2019-05-05 10:30 | NUR ---
AM ASSESSMENT PT SITTING IN CARDIAC RECLINER, RESTING. A/O X 3. NO SOB. NO DISTRESS NOTED. DENIES CHEST PAIN OR DISCOMFORT. DENIES PALPITATIONS. TELE: SR. DENIES INCISIONAL PAIN. RT CHEST INCISION DSG DRY & INTACT. NO BLEEDING, NO DRAINAGE NOTED. DENIES N/V. PER PT 1 EPISODE OF DIARRHEA SINCE THIS AM. MD TO BE NOTIFIED. DIARRHEA BEGAN THIS MORNING. STERNAL PRECAUTIONS REINFORCED. RT GROIN INCISION WELL APPROX. NO DRAINAGE NOTED. UP W/ASSISTANCE. INSTRUCTED TO CALL FOR ASSISTANCE. CALL BRIAN W/IN REACH.
[2019-05-05] MEDS: ASPIRIN 81 MG EC TAB PO SCH (10:37)
[2019-05-05] MEDS: FUROSEMIDE 20 MG TABLET PO SCH ×2 (10:38→16:29)
[2019-05-05] MEDS: CLOPIDOGREL BISULFATE 75 MG TAB PO SCH (10:39)
[2019-05-05] MEDS: DULOXETINE HCL 30 MG CAP PO SCH (10:40)
[2019-05-05] MEDS: FAMOTIDINE 20MG TAB 20 MG TAB PO SCH (10:40)
[2019-05-05] MEDS: ENOXAPARIN SODIUM 30 MG/0.3 ML SQ SCH (10:41)
[2019-05-05] MEDS: LISINOPRIL 2.5 MG TABLET PO SCH ×2 (10:47→20:30)
[2019-05-05 11:00] VITALS: BP 128/60
--- NOTE | 2019-05-05 11:15 | NUR ---
STATUS/MD VISIT NOTIFIED BY COUNTY HEALTH OFFICER PT CURRENTLY AFIB 130-140s SUSTAINING X [address] BERKOWITZ ROUNDABDIRIZAK @ THIS TIME. UPDATED ON PT'S STATUS. ORDERS RECEIVED & ENTERED.
[2019-05-05] MEDS ORDERED: METOPROLOL TARTRATE 1 MG/ML 5ML VIAL IV SCH ×2 (11:30→12:30)
--- NOTE | 2019-05-05 12:31 | NUR ---
MD NOTIFICATION Sagar CHAN NOTIFIED & UPDATED ON PT'S STATUS. HR AFIB 130-140s AFTER 1 TIME DOSE OF LOPRESSOR 5MG IV. ORDERS RECEIVED FOR LOPRESSOR 5 MG IVP X 2 DOSES Q 5 MIN.
[2019-05-05] MEDS: METOPROLOL TARTRATE 1 MG/ML 5ML VIAL IV SCH ×2 (13:06→13:13)
--- NOTE | 2019-05-05 14:12 | NUR ---
MD NOTIFICATION aSgar CHAN UPDATED ON PT'S STATUS. PT CONTINUES TO BE IN AFIB 130s. ORDERS FOR CARDIZEM IVP & GTT RECEIVED & ENTERED.
[2019-05-05] MEDS ORDERED: DILTIAZEM HCL 5 MG/ML 10 ML VIAL IV SCH (14:30)
[2019-05-05] MEDS ORDERED: DILTIAZEM HCL 125 MG/25 ML 125 MG in SODIUM CHLORIDE 0.9% 100 ML IV SCH (14:30)
[2019-05-05 15:00] VITALS: BP 112/54
--- NOTE | 2019-05-05 15:00 | NUR ---
STATUS/MD NOTIFICATION NOTIFIED BY FRAME CLEANER PT CONVERTED TO SR 70s. EKG DONE @ THIS TIME. C HECTOR CHAN NOTIFIED. CARDIZEM IVP & GTT NOT YET GIVEN. ORDER FOR CARDIZEM IVP & GTT DC'D. CONTINUE METOPROLOL PO ORDERED.
[2019-05-05] MEDS ORDERED: PHARMACY COMMUNICATION MISC SCH (15:45)
[2019-05-05] MEDS: DIPHENOXYLATE HCL/ATROPINE 2.5/0.025 MG TAB PO PRN (16:29)
[2019-05-05 20:22] VITALS: BP 123/48
[2019-05-05] MEDS: ATORVASTATIN CALCIUM 20 MG TABLET PO SCH (20:30)
[2019-05-05] MEDS: METOPROLOL TARTRATE 50 MG TAB PO SCH (20:30)
[2019-05-05] MEDS: BUPROPION HCL 150 MG PO SCH (20:31)
[2019-05-05 23:30] VITALS: BP 137/59
[2019-05-06 03:40] VITALS: BP 168/65
[2019-05-06] MEDS ORDERED: DILTIAZEM HCL 125 MG/25 ML 125 MG in SODIUM CHLORIDE 0.9% 100 ML IV SCH (05:30)
[2019-05-06] MEDS: LEVOTHYROXINE 125 MCG TABLET PO SCH (06:03)
[2019-05-06 07:00] VITALS: BP 161/80
[2019-05-06] MEDS ORDERED: DIGOXIN 250 MCG/ML 2ML AMP IV SCH (07:15)
[2019-05-06 07:31] LABS: CREATININE 1.1 mg/dL (0.5-1.5); POTASSIUM 4.1 mmol/L (3.5-5.1)
--- NOTE | 2019-05-06 07:45 | NUR ---
AM ASSESSMENT PT LAYING IN CARDIAC RECLINER, WATCHING TV. A/O X 3. NO SOB. NO DISTRESS NOTED. PT PLACED ON 02 NC @ 2L. DENIES CHEST PAIN OR DISCOMFORT. STATES FEELING PALPITATIONS. TELE: AFLUTTER 140s. DR MENESES AWARE. CARDIZEM GTT @ 15 MG/HR. DENIES N/V AND/OR DIARRHEA. LAST EPISODE OF DIARRHEA YESTERDAY. C/O INCISIONAL PAIN. PO PAIN MEDICATION TO BE GIVEN. INCISION DSG DRY & INTACT. NO DRAINAGE NOTED. STERNAL PRECAUTIONS REINFORCED. IMPORTANCE OF IS REINFORCED @ THIS TIME TOO. IS 750 ML. UP W/ASSISTANCE. INSTRUCTED TO CALL FOR ASSISTANCE. CALL BRIAN W/IN REACH.
[2019-05-06] MEDS: METOPROLOL TARTRATE 50 MG TAB PO SCH (08:17)
[2019-05-06] MEDS: FUROSEMIDE 20 MG TABLET PO SCH ×2 (08:17→16:52)
[2019-05-06] MEDS: FAMOTIDINE 20MG TAB 20 MG TAB PO SCH (08:17)
[2019-05-06] MEDS: ASPIRIN 81 MG EC TAB PO SCH (08:17)
[2019-05-06] MEDS: CLOPIDOGREL BISULFATE 75 MG TAB PO SCH (08:17)
[2019-05-06] MEDS: DULOXETINE HCL 30 MG CAP PO SCH (08:17)
[2019-05-06] MEDS: LISINOPRIL 2.5 MG TABLET PO SCH ×2 (08:18→20:26)
[2019-05-06] MEDS: TRAMADOL HCL 50 MG TABLET PO PRN ×2 (08:23→18:15)
[2019-05-06] MEDS: ENOXAPARIN SODIUM 30 MG/0.3 ML SQ SCH (08:25)
--- NOTE | 2019-05-06 09:50 | NUR ---
[facility] Update: Received call from Cathy this am regarding ins auth. She mentions that they have obtained insurance auth for admission. Informed her that as per primary nurse pt back in afib and on a drip. Per Cathy ins auth is good until Wednesday. CM to continue to follow.
[2019-05-06 11:00] VITALS: BP 110/46
[2019-05-06] MEDS: DIGOXIN 250 MCG/ML 2ML AMP IV SCH ×2 (11:38→18:04)
[2019-05-06] MEDS: DIPHENOXYLATE HCL/ATROPINE 2.5/0.025 MG TAB PO PRN (11:41)
[2019-05-06 12:27] LABS: ALBUMIN 2.6 g/dL (3.5-5.0); BILIRUBIN,DIRECT 0.4 mg/dL (0.0-0.3); BILIRUBIN,TOTAL 1.1 mg/dL (0.2-1.0); TOTAL PROTEIN, SERUM 6.9 g/dL (6.0-8.3)
[2019-05-06] MEDS: METOPROLOL TARTRATE 25 MG TAB PO SCH ×2 (14:24→20:25)
[2019-05-06 15:00] VITALS: BP 119/59
[2019-05-06 19:52] VITALS: BP 128/55
[2019-05-06] MEDS: BUPROPION HCL 150 MG PO SCH (20:24)
[2019-05-06] MEDS: ATORVASTATIN CALCIUM 20 MG TABLET PO SCH (20:26)
[2019-05-06 23:43] VITALS: BP 133/67
[2019-05-07 03:07] VITALS: BP 128/64
[2019-05-07] MEDS: LEVOTHYROXINE 125 MCG TABLET PO SCH (06:22)
[2019-05-07 07:00] VITALS: BP 153/59
[2019-05-07] MEDS: CLOPIDOGREL BISULFATE 75 MG TAB PO SCH (08:44)
[2019-05-07] MEDS: DULOXETINE HCL 30 MG CAP PO SCH (08:44)
[2019-05-07] MEDS: ASPIRIN 81 MG EC TAB PO SCH (08:45)
[2019-05-07] MEDS: FAMOTIDINE 20MG TAB 20 MG TAB PO SCH (08:45)
[2019-05-07] MEDS: METOPROLOL TARTRATE 25 MG TAB PO SCH (08:45)
[2019-05-07] MEDS: LISINOPRIL 2.5 MG TABLET PO SCH (08:45)
[2019-05-07] MEDS: FUROSEMIDE 20 MG TABLET PO SCH ×2 (08:45→15:23)
[2019-05-07] MEDS: ENOXAPARIN SODIUM 30 MG/0.3 ML SQ SCH (08:46)
[2019-05-07] MEDS ORDERED: DIGOXIN 125 MCG TABLET PO SCH (09:00)
[2019-05-07] MEDS: TRAMADOL HCL 50 MG TABLET PO PRN (10:27)
[2019-05-07 11:00] VITALS: BP 148/69
[2019-05-07] MEDS ORDERED: METOPROLOL TARTRATE 25 MG TAB PO SCH (12:15)
[2019-05-07 15:00] VITALS: BP 145/58
--- NOTE | 2019-05-07 16:08 | NUR ---
ATTEMPTED TO GIVE REPORT TO RECEIVING NURSE AT [facility] BUT PER SCALE OPERATOR MANDIE, NURSES ARE BUSY AT THIS TIME. AWAITING CALLBACK AT EXT [phone].
--- NOTE | 2019-05-07 17:25 | NUR ---
SBAR REPORT HANDED TO YSABEL GREENE OF [facility]. ALL QUESTIONS ANSWERED. REFAXED MAR TO [phone]. AWAITING FACILITY VAN TO MANAGER CONTROL PATIENT.
== END 2019-05-07 20:15 | DRG 219 ==
LOC: EDSTATUS 12:00 → DAHIP 05-01 08:02 → 2CV 05-01 14:19 → 2BH 05-02 05:37 → 2AH 05-03 23:46
PROVIDERS: ADMIT Thoracic Surgery (Cardiothoracic Vascular Surgery); ATTEND Thoracic Surgery (Cardiothoracic Vascular Surgery)
PROC: 5A1221Z Performance of Cardiac Output, Continuous (ICD-10-PCS; 2019-05-01)
PROC: B24BZZ4 Ultrasonography of Heart with Aorta, Transesophageal (ICD-10-PCS; 2019-05-01)
PROC: 30233N1 Transfusion of Nonautologous Red Blood Cells into Peripheral Vein, Percutaneous Approach (ICD-10-PCS; 2019-05-01)
PROC: 02RG08Z Replacement of Mitral Valve with Zooplastic Tissue, Open Approach (ICD-10-PCS; principal; 2019-05-01 10:50)
PROC: 02L70ZK Occlusion of Left Atrial Appendage, Open Approach (ICD-10-PCS; 2019-05-01 10:50)
DX: I05.2 Rheumatic mitral stenosis with insufficiency (principal); I50.33 Acute on chronic diastolic (congestive) heart failure; N17.9 Acute kidney failure, unspecified; D62 Acute posthemorrhagic anemia; J98.11 Atelectasis; I25.10 Atherosclerotic heart disease of native coronary artery without angina pectoris; I95.81 Postprocedural hypotension; D72.829 Elevated white blood cell count, unspecified; E03.9 Hypothyroidism, unspecified; E11.51 Type 2 diabetes mellitus with diabetic peripheral angiopathy without gangrene; E78.00 Pure hypercholesterolemia, unspecified; E78.5 Hyperlipidemia, unspecified; I11.0 Hypertensive heart disease with heart failure; I48.91 Unspecified atrial fibrillation; F41.9 Anxiety disorder, unspecified; I65.23 Occlusion and stenosis of bilateral carotid arteries; K21.9 Gastro-esophageal reflux disease without esophagitis; Z74.01 Bed confinement status; Z79.02 Long term (current) use of antithrombotics/antiplatelets; Z79.82 Long term (current) use of aspirin; Z79.899 Other long term (current) drug therapy; Z82.3 Family history of stroke; Z85.3 Personal history of malignant neoplasm of breast; Z87.891 Personal history of nicotine dependence; Z90.710 Acquired absence of both cervix and uterus; Z95.5 Presence of coronary angioplasty implant and graft
CPT/HCPCS: 36415; 36430; 71045; 71046; 80048; 80053; 80076; 82150; 82330; 82435; 82803; 82947; 82948; 83036; 83605; 83690; 83735; 84100; 84132; 84295; 85018; 85025; 85027; 85060; 85347; 85610; 85730; 86850; 86900; 86901; 86922; 88305; 88311; 93005; 93313; 93318; 93880; 94002; 94010; 94150; 97039; A4344; A4357; A7048; G0378; J0171; J0282; J0610; J0690; J0697; J1160; J1644; J1650; J1815; J1940; J2001; J2150; J2250; J2260; J2370; J2704; J2720; J2795; J3475; J3480; J3490; J7030; J7040; P9016; P9047

== ENCOUNTER → 2019-06-14 | Outpatient (CLI) | payer MEDICARE ==
[~2019-06-14] MED LIST changes: +ASPI-555 PO; +DULO30CA52 PO; +GABA600T10 PO; +PANT40TA25 PO
== END | disposition home or self-care (01) ==
LOC: SHCH 11:11
PROVIDERS: ATTEND Internal Medicine Cardiovascular Disease
DX: I87.2 Venous insufficiency (chronic) (peripheral) (principal)
CPT/HCPCS: 93306

== ENCOUNTER → 2020-08-09 | Outpatient (CLI) | payer MEDICARE ==
[~2020-08-09] MED LIST changes: +AMOX-426 PO; -ASPI-555 PO; +ASPI-556 PO; +ATOR10 PO; -BUPR-47 PO; +BUPR-49 PO; -DULO30CA52 PO; -ENAL20TA PO; -GABA600T10 PO; -ISOS30TA6 PO; +LISI2.5T2 PO; +METO25TA6 PO; -NIFE30TA98 PO; -PANT40TA25 PO; +PANT40TA54 PO
== END | disposition home or self-care (01) ==
LOC: SHCH 10:47
PROVIDERS: ATTEND Internal Medicine Cardiovascular Disease
DX: I34.0 Nonrheumatic mitral (valve) insufficiency (principal)
CPT/HCPCS: 93306; 93356